=== PATIENT | female | born 1970 | race Caucasian/White ===

== ENCOUNTER 2022-08-27 19:54 | Emergency (ER) | payer OTHER ==
[~2022-08-27] VITALS: Ht 165.1 cm; Wt 83.0 kg
[2022-08-27 20:01] VITALS: BP 141/84
[2022-08-27] MEDS ORDERED: PROCHLORPERAZINE 5 MG TAB PO ONE (22:05)
[2022-08-27] MEDS ORDERED: diphenhydrAMINE 50 MG CAP PO ONE (22:05)
[2022-08-27] MEDS ORDERED: KETOROLAC 15 MG/ML VIAL IM ONE (22:05)
--- NOTE | 2022-08-28 00:20 | NUR ---
Patient discharged with v/s stable. Written and verbal after care instructions given and explained. Patient verbalized understanding. Ambulatory with steady gait. All questions addressed prior to discharge. Advised to follow up with PMD.
[2022-08-28 01:24] VITALS: BP 141/84
== END 2022-08-28 01:24 | disposition home or self-care (01) ==
LOC: MED 19:54
DX: G43.909 Migraine, unspecified, not intractable, without status migrainosus (principal)
CPT/HCPCS: 70450; 81025; 96372; 99285; J1885; Q0163; Q0164